=== PATIENT | male | born 1985 | race Asian ===

== ENCOUNTER 2024-10-20 22:25 | Emergency (ER) | payer BC ==
[~2024-10-20] VITALS: Ht 175.3 cm; Wt 78.0 kg
[2024-10-20 22:32] VITALS: O2SAT 97
[2024-10-21] MEDS: LORAZEPAM 1MG TABLET PO ONE (00:19)
[2024-10-21] MEDS: DICYCLOMINE 10 MG/5 ML ORAL SYR PO STA (00:19)
[2024-10-21] MEDS: MAGNESIUM/ALUMINUM HYDROXIDE/SIMETHICONE 30ML UDC PO STA (00:19)
[2024-10-21 00:55] VITALS: BP 100/62; PULSE 99; RESP 16; TEMP 36.6; O2SAT 97
[2024-10-21 01:43] LABS: BASOPHILS % 0.5 % (0.0-2.0); DIFFERENTIAL COMMENT 0; EOSINOPHILS % 1.9 % (0.0-5.0); HEMATOCRIT. 42.4 % (42.0-52.0); HEMOGLOBIN. 13.3 g/dL (14.0-18.0); LYMPHOCYTES % 25.7 % (20.0-50.0); MEAN CORPUSCULAR HEMOGLOBIN 24.9 pg (28.0-32.0); MEAN CORPUSCULAR HGB CONC 31.3 g/dL (31.0-37.0); MEAN CORPUSCULAR VOLUME 79.5 fL (80.0-94.0); MEAN PLATELET VOLUME 7.2 fl (7.4-10.4); MONOCYTES % 7.5 % (2.0-8.0); NEUTROPHILS % 64.4 % (40.0-76.0); PLATELET 374 x1000/uL (130-400); RED BLOOD CELL COUNT 5.33 mill/uL (4.7-6.1); RED CELL DISTRIBUTION WIDTH 13.9 % (11.6-14.6); WHITE BLOOD COUNT 7.2 x1000/uL (4.5-11.0)
[2024-10-21 02:03] LABS: CHLORIDE 107 mEq/L (98-107); SODIUM 141 mEq/L (136-145)
[2024-10-21 02:04] LABS: CARBON DIOXIDE 26 mEq/L (21-32)
[2024-10-21 02:09] LABS: CREATININE 0.9 mg/dL (0.6-1.3); GLUCOSE 96 mg/dL (70-105)
[2024-10-21 02:10] LABS: UREA NITROGEN BLOOD 11 mg/dL (9-23)
[2024-10-21 02:28] LABS: TROPONIN I HIGH SENSITIVITY < 4 ng/L (3.0-53)
[2024-10-21] MEDS: ASPIRIN 325MG TABLET PO ONE (02:56)
== END 2024-10-21 04:30 | disposition left against medical advice (07) ==
LOC: ER 22:25
DX: R07.89 Other chest pain (principal); R94.31 Abnormal electrocardiogram [ECG] [EKG]; F41.9 Anxiety disorder, unspecified; Z88.2 Allergy status to sulfonamides
CPT/HCPCS: 36415; 71045; 80048; 84484; 85025; 85379; 93005; 99285